=== PATIENT | male | born 1960 | race Caucasian/White ===

== ENCOUNTER 2017-10-11 19:27 | Emergency (ER) | payer OTHER ==
[~2017-10-11] VITALS: Ht 162.6 cm; Wt 74.3 kg
[~2017-10-11 19:27] MED LIST: AMLODIPINE BESY10 MG PO; CIPRO500 MG PO; CRESTOR10 MG PO; FISH OIL 1,0001 EAC7 PO; GLIMEPIRIDE2 MG PO; KOMBIGLYZE XR1 EAC2 PO; LISINOPRIL40 MG PO; MEN'S 50+ DAIL1 EACH PO; PERCOCET 5/31 TABLET PO
[2017-10-11] MEDS ORDERED: NAPROSYN500 MG PO (21:29)
[2017-10-11] MEDS ORDERED: ULTRAM50 MG PO (21:29)
[2017-10-11 22:16] VITALS: BP 140/74
== END 2017-10-11 21:30 | disposition home or self-care (01) ==
LOC: EME 19:27
DX: M25.512 Pain in left shoulder (principal); E11.9 Type 2 diabetes mellitus without complications
CPT/HCPCS: 73030; 99281; 99284; J1885